=== PATIENT | female | born 1995 | race Caucasian/White ===

== ENCOUNTER 2021-03-14 10:34 | Inpatient (IN) | payer OTHER, SELFPAY ==
[2021-03-14] VITALS (11 sets, daily range): BP systolic 92–135; BP diastolic 45–89; PULSE 52–100; RESP 16–26; TEMP 36.7–37.2; O2SAT 98–100
--- NOTE | ~2021-03-14 | CT_ITS ---
EXAMINATION: CT abdomen pelvis w con DATE: 03/14/2021 12:27 INDICATION: Generalized abdominal pain. TECHNIQUE: Computed tomography (CT) of the abdomen and pelvis was performed with 100 mL Omnipaque 350 intravenous contrast. Automated exposure control and iterative reconstruction technique were employe d. The dose-length product was 194.67 mGy-cm. COMPARISON: None. FINDINGS: The visualized portions of the lung bases are clear without pneumonia or pleural effusion. The heart size is normal. No pericardial effusion. The liver, gallbladder, spleen, pancreas, adrenal glands, and right kidney are normal. Left kidney demonstrates a striated nephrogram, consistent with pyelonephritis. There is a ring-shaped device in the vagina. There are no dilated loops of bowel. The appendix is normal. There are no pathologically enlarged lymph nodes. There is trace pelvic ascites. The bones are unremarkable. IMPRESSION: 1. Left-sided pyelonephritis. Reviewed, dictated and finalized at location A.
--- NOTE | 2021-03-14 10:48 | ED.NAVMDI ---
HPI - Nausea/Vomiting/Diarrhea General Chief complaint: Nausea/Vomiting/Diarrhea Stated complaint: N/V Time Seen by Provider: 03/14/21 10:39 Source: patient and RN notes reviewed Mode of arrival: ambulatory Limitations: no limitations History of Present Illness HPI Narrative: This is a 26 year old female with history of anxiety and IBS who presents for evaluation abdominal pain with nausea and vomiting. She developed diffuse abdominal pain with nausea and vomiting yesterday. She has been unable to keep anything down today. She denies diarrhea and she states her last normal bowel movement was this morning. She denies fever, chills, sob, or cough. She reports her son had an episode of vomiting yesterday but he did not have any other symptoms. Related Data Home Medications Medication Instructions Recorded Confirmed venlafaxine 75 mg PO DAILY 03/14/21 03/14/21 Allergies Allergy/AdvReac Type Severity Reaction Status Date / Time Penicillins Allergy Unknown Vomiting Verified 03/14/21 16:37 Review of Systems Review of Systems: All systems reviewed & are unremarkable except as noted in HPI and below Constitutional: Constitutional: Denies chills and Denies fever(s) ENT: Reports sore throat Cardiovascular: Cardiovascular: Denies chest pain Respiratory: Respiratory: Denies cough and Denies dyspnea Gastrointestinal: Gastrointestinal: Reports abdominal pain, Denies diarrhea, Reports nausea and Reports vomiting Genitourinary: Genitourinary: Denies hematuria, Denies nocturia and Denies dysuria [facility] Past Medical History Medical History (Updated 03/14/21 @ 18:47 by Aleah Oconnell MD) Anxiety IBS (irritable bowel syndrome) Surgical History Surgical History (Updated 03/14/21 @ 10:53 by Aleah Oconnell MD) No pertinent past surgical history Family History Family History (Updated 03/14/21 @ 16:43 by Anabella Gómez RN) Grandparent Lung cancer Diabetes mellitus Social History Social History (Updated 03/14/21 @ 10:52 by Aleah Oconnell MD) Years smoked: 7 Smoking status: Current every day smoker Tobacco type: cigarettes Alcohol intake: never Substance use: current Substance use type: marijuana Spiritual care concerns: No Exam Const: General: no acute distress and alert Orientation/consciousness: patient oriented x3 Eyes: EOM: EOMs intact bilaterally Resp: Effort & Inspection: normal respiratory effort and no retractions Auscultation: clear to auscultation bilaterally Cardio: Rate: regular rate Rhythm: regular rhythm Heart sounds: no murmurs GI: GI Palp: Yes Soft to palpation, Yes Tenderness to palpation present (GI), No Guarding due to palpation present (GI) and No Rigid due to palpation Auscultation: normal bowel sounds Neuro: General: patient oriented x3, moves all extremities and CN's II-XI intact bilaterally Psych: Mental Status: mental status grossly normal Affect: normal affect Course Reevaluation(s) Reevaluation #1: PAtient now agreeable to admisssion. I discussed with her that given high wbc and lactic acid she should stay for sepsis and she is unable to tolerate PE. Date: 03/14/21 Time: 15:00 Consultations Consultation #1: I Discussed case and Rosalie accepts patient to service for treatment of pyelonephritis Date: 03/14/21 Time: 15:29 Vital Signs Vital signs: Vital Signs Temperature 99 F 03/14/21 10:39 Pulse Rate 98 03/14/21 10:39 Respiratory Rate 20 03/14/21 10:39 Blood Pressure 120/69 03/14/21 10:39 Pulse Oximetry 100 03/14/21 10:39 Temperature 98.1 F 03/14/21 16:20 Pulse Rate 62 03/14/21 16:20 Respiratory Rate 16 03/14/21 16:20 Blood Pressure 105/52 L 03/14/21 16:20 Pulse Oximetry 98 03/14/21 16:20 MDM - Nausea/Vomiting/Diarrhea Lab Data Attestation: I reviewed the patient's lab results. Result diagrams: 03/14/21 10:52 03/14/21 10:52 Labs: Lab Results 0
[2021-03-14] MEDS: LACTATED RINGERS 1,000 ML 999 ML IV CONT ×3 (10:50→13:52)
[2021-03-14] MEDS: ONDANSETRON INJ 4 MG/2 ML VIAL IV PUSH ×4 (10:53→23:43)
[2021-03-14 11:00] LABS: Basophils Percent Auto 0.1 % (0.2-1.2); Hematocrit 37.6 % (37.0-47.0); Hemoglobin 12.7 g/dL (12.0-15.0); Immature Granulocyte Absolute 0.13 K/mm3 (0.00-0.031); Immature Granulocyte Percent A 0.6 % (0-0.5); Lymphocytes Absolute Auto 0.91 K/mm3 (0.9-3.2); Lymphocytes Percent Auto 4.1 % (18.3-44.2); Mean Corpuscular HGB Conc 33.8 g/dl (32-36); Mean Corpuscular Hemoglobin 30.8 pg (26-34); Mean Platelet Volume 11.2 fl (7.4-10.4); Monocytes Absolute Auto 0.8 K/mm3 (0.1-0.6); Monocytes Percent Auto 3.6 % (2.6-8.5); Neutrophils Absolute Auto 20.2 K/mm3 (1.3-6.7); Neutrophils Percent Auto 91.6 % (45.5-73.1); Platelet Count Result 252 k/mm3 (150-375); Red Blood Count 4.13 M/mm3 (4.2-5.4); White Blood Count 22.1 K/mm3 (4.5-10.0)
[2021-03-14 11:05] LABS: Add Urine Microscopic? YES; Appearance Urine Cloudy (Clear); Bacteria Urine Trace /hpf; Bilirubin Urine Negative (Negative); Glucose Urine UA Negative (Negative); Ketones Urine 2+ mg/dL (Negative); Leukocyte Esterase Ur 2+ LEU/UL (Negative); Mucus Urine Heavy /lpf; Nitrate Urine Negative (Negative); Protein Urine 3+ mg/dL (Negative); Specific Grav Ur 1.022 (1.001-1.035); Squamous Epithelial Cell Urine Many /hpf (Few); Urobilinogen Urine Negative mg/dL (<2.0); WBC Urine >75 /hpf
[2021-03-14 11:20] LABS: Blood Urine Negative (Negative); Color Urine Yellow (Yellow)
[2021-03-14 11:36] LABS: Alanine Aminotransferase 15 U/L (4-35); Albumin Level 4.7 g/dL (3.5-5.1); Alkaline Phosphatase 102 U/L (38-126); Anion Gap 16 mmol/L (8-16); Aspartate Amino Transferase 26 U/L (14-36); Bilirubin,Total 0.6 mg/dL (0.2-1.3); Blood Urea Nitrogen 12 mg/dL (7-17); Calcium 10.2 mg/dL (8.4-10.2); Carbon Dioxide 18 mmol/L (22-30); Chloride 106 mmol/L (98-107); Estimated CRCL calculation 102 ml/min; Estimated Glomerular Filt Rate > 60; Glucose 144 mg/dL (65-105); Lipase 22 U/L (23-300); Potassium 4.1 mmol/L (3.4-5.0); Sodium 140 mmol/L (137-145)
[2021-03-14] MEDS: METOCLOPRAMIDE HCL INJ 10 MG/2 ML VIAL IV PUSH (12:03)
[2021-03-14] MEDS: diphenhydrAMINE HCl INJ 50 MG/ML VIAL 25 MG IV PUSH (12:03)
[2021-03-14 12:12] LABS: Alveolar/Arterial O2 Gradient 15.4 mmHg; Base Excess ABG -0.4 mEq/l (+/-2.0); Carboxyhemoglobin 0.3 % THb (0-2.0); Fractional Inspired Oxygen 21 %; HCO3 ABG 18.9 mEq/l (22.0-26.0); Methemoglobin ABG 0.1 %THb (0-1.5); Oxygen Content ABG 15.4 %vol (16.0-22.0); Oxygen Saturation ABG 98.9 % (95.0-100.0); Oxyhemoglobin 97.6 % THb (90.0-100.0); PO2 ABG 112.3 mmHg (80.0-100.0); PO2 FiO2 Ratio Arterial Blood 5.35 %; Total Hemoglobin 11.1 g/dL (12.0-18.0)
[2021-03-14 12:14] LABS: Device ROOM AIR; PCO2 ABG 18.4 mmHg (35.0-45.0); Site Drawn LEFT BRACHIAL
[2021-03-14] MEDS: KETOROLAC 15 MG/ML VIAL (*BKC) IV PUSH (15:05)
[2021-03-14 15:58] LABS: Reflex Lactic Acid Yes or No Add Lactic
--- NOTE | 2021-03-14 16:25 | ADMGEN ---
This patient, Barby De La Fuente, was admitted to 2 Medical Room 260-01. Patient/family oriented to hospital policies and general routines including ID bracelet, bed and alarms, visiting hours, pain management, procedures, bathroom and other care routines, personal items, smoking policy, room service/diet, and visiting hours. Information on how to activate the Rapid Response Team has been discussed. Patient/Family are encouraged to report perceived risks to care and to ask questions if they do not understand what they are told or what they should do.
[2021-03-14 16:26] LABS: Lactic Acid 1.1 mmol/L (0.7-2.1)
[2021-03-14] MEDS: SODIUM CHLORIDE 0.9% IV 1,000 ML 125 ML IV CONT (16:35)
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
[2021-03-15] MEDS: SODIUM CHLORIDE 0.9% IV 1,000 ML 125 ML IV CONT ×2 (01:35→09:53)
[2021-03-15] MEDS: ONDANSETRON INJ 4 MG/2 ML VIAL IV PUSH ×5 (03:52→21:31)
[2021-03-15] MEDS: KETOROLAC 15 MG/ML VIAL (*BKC) IV PUSH (05:01)
[2021-03-15 05:19] VITALS: BP 129/79; PULSE 56; RESP 20; TEMP 36.2; O2SAT 99
[2021-03-15 05:41] LABS: Basophils Percent Auto 0.1 % (0.2-1.2); Hematocrit 31.3 % (37.0-47.0); Hemoglobin 10.4 g/dL (12.0-15.0); Immature Granulocyte Absolute 0.07 K/mm3 (0.00-0.031); Immature Granulocyte Percent A 0.5 % (0-0.5); Lymphocytes Absolute Auto 1.47 K/mm3 (0.9-3.2); Lymphocytes Percent Auto 9.5 % (18.3-44.2); Mean Corpuscular HGB Conc 33.2 g/dl (32-36); Mean Corpuscular Hemoglobin 30.7 pg (26-34); Mean Corpuscular Volume 92.3 fl (80-100); Mean Platelet Volume 11.4 fl (7.4-10.4); Monocytes Percent Auto 6.7 % (2.6-8.5); Neutrophils Absolute Auto 12.9 K/mm3 (1.3-6.7); Neutrophils Percent Auto 83.2 % (45.5-73.1); Platelet Count Result 171 k/mm3 (150-375); Red Blood Count 3.39 M/mm3 (4.2-5.4); Red Cell Distribution Width 12.3 % (11.5-14.5); White Blood Count 15.5 K/mm3 (4.5-10.0)
[2021-03-15 06:04] LABS: Alanine Aminotransferase 12 U/L (4-35); Albumin Level 3.5 g/dL (3.5-5.1); Alkaline Phosphatase 83 U/L (38-126); Anion Gap 6 mmol/L (8-16); Aspartate Amino Transferase 23 U/L (14-36); Bilirubin,Total 0.4 mg/dL (0.2-1.3); Blood Urea Nitrogen 8 mg/dL (7-17); Calcium 8.2 mg/dL (8.4-10.2); Carbon Dioxide 22 mmol/L (22-30); Chloride 112 mmol/L (98-107); Estimated CRCL calculation 102 ml/min; Estimated Glomerular Filt Rate > 60; Glucose 120 mg/dL (65-105); Potassium 3.5 mmol/L (3.4-5.0); Sodium 140 mmol/L (137-145)
[2021-03-15] MEDS: ENOXAPARIN 40 MG/0.4 ML SYRINGE SUB-Q (09:10)
[2021-03-15] MEDS: MORPHINE SULFATE (*CRX) 2 MG/ML INJ IV PUSH ×2 (09:10→23:34)
[2021-03-15 09:41] VITALS: O2SAT 99
--- NOTE | 2021-03-15 12:13 | PM.IMPN ---
Progress Note: A&P Assessment and Plan (1) Pyelonephritis: Code(s): N12 - Tubulo-interstitial nephritis, not specified as acute or chronic Status: Acute Assessment and Plan: Continue empiric antibiotic therapy with Rocephin. see Sepsis treatment Blood cultures and urine cultures are pending. continue IV Tylenol and IV morphine for pain control continue IV Zofran for nausea and vomiting encouraged soft bland diet (2) Sepsis secondary to UTI: Code(s): A41.9 - Sepsis, unspecified organism; N39.0 - Urinary tract infection, site not specified Status: Acute Assessment and Plan: Sepsis criteria met on admission with leukocytosis, tachypnea and lactic acidosis. Tachypnea and lactic acidosis have subsequently resolved with IV fluid hydration at 125ml/hour, decreased IVFs to 75 ml/hr. her lactic alkalosis has likely improved as her CO2 was low at admission and has normalized per BMP lab work received IV hydration yesterday 3615ml in, and further IV hydration today 2190 ml Blood cultures and urine cultures are pending. UTI likely: UA showed 2+ leukocytes, trace bacteria, greater than 75 WBC. Continue empiric antibiotic therapy with Rocephin. Continue Lovenox subcu as DVT prophylaxis lactic acid level was 3.0 at admission, improved with IV fluids to 1.1 white count improved from 20 to to 15.5 today no fevers noted since admission Subjective Date/time seen: 03/15/21 12:13 Barby is feeling better, but still having nausea and vomiting with meals. She has been unable to tolerate any substantial amount of food orally. She continues to tolerate ice chips well. We will try giving her Zofran BEFORE her lunch. I advised her to order something soft bland for lunch, and discussed with the nurse to give me a call if they have any difficulty with nausea and vomiting at lunch time today. The IV Tylenol was not effective this morning at controlling her pain and she continued to have left flank pain. The patient and the nursing staff informed me that the IV morphine was very effective, and she is much more comfortable at this time. Review of Systems Review of Systems: All systems reviewed & are unremarkable except as noted in HPI and below Constitutional: Constitutional: Reports as per HPI, Reports body ache(s), Denies chills, Denies fever(s) and Reports malaise Eyes: Eyes: Reports as per HPI, Denies exophthalmos, Denies diplopia, Denies floaters and Denies loss of peripheral vision ENT: Reports system reviewed and no additional complaints, except as documented, Reports as per HPI and Reports sore throat Cardiovascular: Cardiovascular: Denies chest pain, Denies chest pain at rest, Denies chest pain with activity, Denies syncope, Denies pedal edema, Denies edema, Denies irregular heart rhythm and Denies dyspnea Respiratory: Respiratory: Reports as per HPI, Denies chest congestion, Denies cough, Denies hemoptysis and Denies dyspnea Gastrointestinal: Gastrointestinal: Reports as per HPI, Reports abdominal pain, Denies belching, Denies melena, Denies hematochezia, Denies change in bowel habits, Denies constipation, Denies GI cramping, Denies dysphagia, Denies excessive flatus, Denies early satiety, Denies diarrhea, Reports nausea, Denies odynophagia, Reports vomiting and Denies hematemesis Genitourinary: Genitourinary: Reports as per HPI, Denies hematuria, Denies nocturia, Denies dysuria and Reports flank pain (left sided) Musculoskeletal: Musculoskeletal: Reports as per HPI Integumentary/Breasts: Skin/Breast: Reports as per HPI Neurologic: Reports as per HPI, Reports Normal hearing present, Denies syncope, Denies frequent falls and Denies headache(s) Psychiatric: Psychiatric: Reports as per HPI Endocrine: Endocrine: Reports as per HPI and Denies excessive sweating Hematologic/Lymphatic: Hematologic/Lymphatic: Reports as per HPI Exam Narrative: Exam Narrative: PHYSICAL EXAM: WEIGHT
[2021-03-15 14:00] VITALS: BP 101/48; PULSE 56; RESP 16; TEMP 37.6; O2SAT 100
[2021-03-15 20:00] VITALS: PULSE 62; RESP 18; O2SAT 100
[2021-03-15 20:36] LABS: IFOB Positive Control Positive; Immunochemical Fecal Occult Bl Negative (N)
[2021-03-15] MEDS: SODIUM CHLORIDE 0.9% IV 1,000 ML 75 ML IV CONT (21:24)
[2021-03-15 21:30] VITALS: BP 109/64; PULSE 62; RESP 18; TEMP 36.8; O2SAT 100
[2021-03-16] MEDS: ONDANSETRON INJ 4 MG/2 ML VIAL IV PUSH ×4 (00:40→16:45)
[2021-03-16 05:39] VITALS: BP 98/48; PULSE 56; RESP 18; TEMP 36.6; O2SAT 100
[2021-03-16 06:16] LABS: Hematocrit 30.7 % (37.0-47.0); Hemoglobin 10.2 g/dL (12.0-15.0); Mean Corpuscular HGB Conc 33.2 g/dl (32-36); Mean Corpuscular Hemoglobin 31.4 pg (26-34); Mean Corpuscular Volume 94.5 fl (80-100); Mean Platelet Volume 11.2 fl (7.4-10.4); Platelet Count Result 152 k/mm3 (150-375); Red Blood Count 3.25 M/mm3 (4.2-5.4); Red Cell Distribution Width 12.4 % (11.5-14.5); White Blood Count 6.8 K/mm3 (4.5-10.0)
[2021-03-16 06:26] LABS: Anion Gap 3 mmol/L (8-16); Blood Urea Nitrogen 5 mg/dL (7-17); Calcium 8.3 mg/dL (8.4-10.2); Carbon Dioxide 26 mmol/L (22-30); Chloride 109 mmol/L (98-107); Estimated CRCL calculation 102 ml/min; Estimated Glomerular Filt Rate > 60; Glucose 86 mg/dL (65-105); Magnesium 1.9 mg/dL (1.6-2.3); Potassium 3.1 mmol/L (3.4-5.0); Sodium 138 mmol/L (137-145)
[2021-03-16] MEDS: VENLAFAXINE HCL XR 75 MG CAP.ER.24H PO (08:36)
[2021-03-16] MEDS: ENOXAPARIN 40 MG/0.4 ML SYRINGE SUB-Q (08:36)
[2021-03-16] MEDS: POTASSIUM CHLORIDE 20 MEQ TABLET 40 MEQ PO (09:38)
[2021-03-16] MEDS: SODIUM CHLORIDE 0.9% IV 1,000 ML 75 ML IV CONT (10:23)
[2021-03-16 14:00] VITALS: BP 105/58; PULSE 64; RESP 20; TEMP 37.1; O2SAT 98
--- NOTE | 2021-03-16 15:35 | PM.DS ---
DS: Admitting Diagnosis Admitting Diagnosis Admitting Diagnosis: Pyelonephritis DS: Discharge Diagnosis Discharge Diagnosis (1) Pyelonephritis: Code(s): N12 - Tubulo-interstitial nephritis, not specified as acute or chronic Status: Acute Assessment and Plan: Date of Admission 03/14/21 Date of Discharge 03/16/21 Barby De La Fuente is a 26yo F who presented to the ED for evaluation of abdominal pain. CT abdomen/pelvis demonstrated evidence of left-sided pyelonephritis. Urinalysis was grossly abnormal, urine culture grew pansensitive E coli. She was admitted to the hospitalist service for treatment of sepsis and pyelonephritis. Sepsis criteria was met on arrival with leukocytosis, tachypnea and lactic acidosis, which resolved with the following therapy: She was treated with 3 doses of IV ceftriaxone and discharged with oral cefdinir to complete a 14-day course total. Her abdominal pain was improved and she was treated with Zofran for nausea and vomiting. She was tolerating oral meals without vomiting on day of discharge and encouraged to continue a soft bland diet. Blood cultures were negative. She is hemodynamically stable for discharge on 03/16/2021 with instructions to follow-up with Patient had a few loose bowel movements but was not having significant diarrhea. Her stool was cultured in tested, following her discharge her C diff results were positive. The hand striper on-call was notified. Patient was notified of these results by the nursing supervisor sewing department and recommended to follow-up with her primary care provider and denied any watery diarrhea or abdominal pain at that time. (2) Sepsis secondary to UTI: Code(s): A41.9 - Sepsis, unspecified organism; N39.0 - Urinary tract infection, site not specified Status: Acute Assessment and Plan: See above. DS: Summary Hospital Course Hospital Course: See above Time Spent with Patient Time attestation: Total time spent providing and/or coordinating discharge services: 35 minutes. Exam Narrative: Exam Narrative: General: Patient resting comfortably supine in bed in no acute distress. HEENT: Normocephalic, EOMI, oral mucosa moist. Cardiovascular: Rate and rhythm are regular. Respiratory: Lungs clear to auscultation bilaterally. Respirations even and non-labored. Abdomen: Soft, non-tender, non-distended, bowel sounds present. Extremities: Peripheral pulses intact. No edema. Neuro: No focal neurological deficits. Speech is clear. DS: Data Data Completed and Pending Labs on day of discharge: Last Vital Signs Temp 98.7 F 03/16/21 14:00 Pulse 64 03/16/21 14:00 Resp 20 03/16/21 14:00 BP 105/58 L 03/16/21 14:00 Pulse Ox 98 03/16/21 14:00 ITS Impressions Abdomen/Pelvis CT 03/14/21 12:29 IMPRESSION: 1. Left-sided pyelonephritis. Laboratory Tests 03/16/21 05:50 03/16/21 05:50 Discharge Plan Discharge Attending physician on discharge: Gisela Roman Consulting providers: Nuha Maher ; Asaf Rhodes V. Discharging Clinician: Soraya Maxwell Anticipated Discharge Date/Time: 03/16/21 15:14 Patient Disposition: Home, Self-Care Activity: as tolerated Diet: as tolerated Discharge Instructions: Please call to schedule a hospital follow up appointment with your primary care provider in 1 to 2 weeks, or sooner if you are feeling worse. You were treated in the hospital for a urinary tract infection that ascended up to your kidney to cause an infection called pyelonephritis. You are prescribed antibiotics to help treat this infection. Please continue to take all of your antibiotics as prescribed until they are gone, even when you begin to feel better. Continue to use ondansetron (Zofran) as needed for nausea and vomiting. Continue to monitor your symptoms and seek medical care right away if your i
--- NOTE | 2021-03-16 21:11 | PC.NURSE ---
03/16/2021 2100. Notified by Nakul from lab patient has positive C Diff results. Dr Maher contacted for direction. 2114 Patient notified of lab results and need to follow up with a primary care physician. Patient denies any watery diarrhea or abdominal pain at this time.
== END 2021-03-16 17:50 | disposition home or self-care (01) | DRG 720 ==
LOC: ANHED 10:54 → ANH2MED 16:00
PROVIDERS: Nurse Practitioner; Physician Assistant; Admitting Provider Family Medicine; Emergency Provider General Practice; PCP Physician Assistant; Visit Provider Physician Assistant
DX: A41.9 Sepsis, unspecified organism (principal); N10 Acute pyelonephritis; B96.20 Unspecified Escherichia coli [E. coli] as the cause of diseases classified elsewhere; K58.9 Irritable bowel syndrome, unspecified; F17.210 Nicotine dependence, cigarettes, uncomplicated; F41.9 Anxiety disorder, unspecified; F32.9 Major depressive disorder, single episode, unspecified
CPT/HCPCS: 36415; 36600; 74177; 80048; 80053; 81001; 81025; 82274; 82375; 82805; 83050; 83605; 83690; 83735; 85025; 85027; 87040; 87045; 87046; 87077; 87086; 87088; 87186; 87269; 87272; 87324; 87427; 89055; 96361; 96365; 96367; 96375; 96376; 99285; A9270; J0131; J0696; J1200; J1650; J1885; J2270; J2405; J2765; J7030; J7120; Q9967

== ENCOUNTER 2022-01-18 21:52 | Emergency (ER) | payer OTHER, SELFPAY ==
--- NOTE | ~2022-01-18 | XR_ITS ---
EXAMINATION: XR wrist RT min 3V DATE: 01/18/2022 22:21 INDICATION: Right wrist pain post fall TECHNIQUE: Posteroanterior, ulnar deviation, oblique, and lateral views of the right wrist were obtai linda. COMPARISON: none FINDINGS: Alignment is normal. No fracture. Joint spaces are normal. Soft tissues are unremarkable. IMPRESSION: 1. Negative right wrist radiographs. Reviewed, dictated and finalized at location A.
[2022-01-18 21:59] VITALS: BP 114/53; PULSE 95; RESP 16; TEMP 36.7; O2SAT 98
[2022-01-18 22:10] VITALS: BP 110/67; PULSE 79; RESP 14; TEMP 36.8; O2SAT 100
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
== END 2022-01-18 23:39 | disposition home or self-care (01) ==
PROVIDERS: Emergency Provider Nurse Practitioner Family; PCP Physician Assistant
DX: S62.101A Fracture of unspecified carpal bone, right wrist, initial encounter for closed fracture (principal); K58.9 Irritable bowel syndrome, unspecified; F41.9 Anxiety disorder, unspecified; F32.A Depression, unspecified; F17.210 Nicotine dependence, cigarettes, uncomplicated; Y93.51 Activity, roller skating (inline) and skateboarding; V00.121A Fall from non-in-line roller-skates, initial encounter
CPT/HCPCS: 29125; 73110; 99284; A4565

== ENCOUNTER 2023-07-01 08:37 | Emergency (ER) | payer OTHER, SELFPAY ==
[2023-07-01 08:42] VITALS: BP 108/67; PULSE 100; RESP 16; TEMP 36.6; O2SAT 99
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
== END 2023-07-01 09:20 | disposition home or self-care (01) ==
PROVIDERS: Emergency Provider Nurse Practitioner; PCP Physician Assistant
DX: J40 Bronchitis, not specified as acute or chronic (principal); F41.8 Other specified anxiety disorders; F17.210 Nicotine dependence, cigarettes, uncomplicated; Z20.822 Contact with and (suspected) exposure to COVID-19
CPT/HCPCS: 87426; 99213; C9803; G0463